=== PATIENT | male | born 1940 | race American Indian/Alaskan Native ===

== ENCOUNTER 2020-05-08 11:33 | Emergency (ER) | payer BC, MEDICARE ==
--- NOTE | 2020-05-08 12:00 | EDM.PDOC ---
ED HPI GENERAL MEDICAL PROBLEM - General Chief Complaint: Genitourinary Problem Stated Complaint: CATHETER ISSUES Time Seen by Provider: 05/08/20 11:37 Source of Information: Reports: Patient, RN Notes Reviewed History Limitations: Reports: No Limitations - History of Present Illness INITIAL COMMENTS - FREE TEXT/NARRATIVE: Patient is an 79 year old male presenting to the ER with c/o ramirez catheter complications. He had surgery on his prostate 2 days ago and is to have his ramirez catheter in place for 10 days. This morning, the catheter stopped draining. Pt c/o bladder fullness and leaking from his urethra. Lower Abdomen Pain Score (Numeric/FACES): 6 - Related Data Allergies Allergy/AdvReac Type Severity Reaction Status Date / Time No Known Allergies Allergy Verified 05/08/20 11:45 Past Medical History - Infectious Disease History Infectious Disease History: Reports: None - Past Surgical History Male Surgical History: Reports: Other (See Below) Other Male Surgeries/Procedures: surgery on left testicle Social & Family History - Tobacco Use Tobacco Use Status *Q: Never Tobacco User Second Hand Smoke Exposure: No - Caffeine Use Caffeine Use: Reports: Coffee - Recreational Drug Use Recreational Drug Use: No ED ROS GENERAL - Review of Systems Review Of Systems: Comprehensive ROS is negative, except as noted in HPI. ED EXAM, RENAL/ - Physical Exam Exam: See Below General Appearance: Alert, WD/WN, No Apparent Distress Respiratory/Chest: No Respiratory Distress, Lungs Clear, Normal Breath Sounds, No Accessory Muscle Use, Chest Non-Tender Cardiovascular: Normal Peripheral Pulses, Regular Rate, Rhythm, No Edema, No Gallop, No JVD, No Murmur, No Rub GI/Abdominal: Normal Bowel Sounds, Soft, No Organomegaly, No Distention, No Abnormal Bruit, No Mass, Tender (suprapubic tenderness/fullness) (Male) Exam: Other (ramirez catheter) Neurological: Alert, Oriented, CN II-XII Intact, Normal Cognition, Normal Gait, Normal Reflexes, No Motor/Sensory Deficits Psychiatric: Normal Affect, Normal Mood Skin Exam: Warm, Dry, Intact, Normal Color, No Rash Course - Vital Signs Last Recorded V/S: Last Vital Signs Temp 97.1 F 05/08/20 11:42 Pulse 75 05/08/20 11:42 Resp 16 05/08/20 11:42 BP 191/82 H 05/08/20 11:42 Pulse Ox 95 05/08/20 11:42 - Re-Assessments/Exams Free Text/Narrative Re-Assessment/Exam: Patient is an 79-year-old male presenting to the emergency department with complaints of his Ramirez catheter not draining. He had surgery on his prostate 2 days ago and is to have a Ramirez catheter in for 10 days. He states this morning the Ramirez catheter passed a blood clot and then stopped draining. Ramirez catheter was disconnected from the drainage bag. I pulled back using a catheter tip syringe. A small amount of bloody urine returned and then the catheter started draining well. He has had about 600 mils of blood-tinged urine drained from his bladder. He is feeling much better. Educated patient's daughter on bladder irrigation if needed. We will send her home with an irrigation tray in case it should stop flowing again. Discussed that if she is not comfortable or if this does not resolve the issue, he should return to the emergency department. They are in agreement with this plan. Discharge instructions as documented. Departure - Departure Time of Disposition: 12:16 Disposition: Home, Self-Care 01 Condition: Good Clinical Impression: Complication, blocked Ramirez catheter Qualifiers: Encounter type: initial encounter Qualified Code(s): T83.091A - Other mechanical complication of indwelling urethral catheter, initial encounter - Discharge Information *PRESCRIPTION DRUG MONITORING PROGRAM REVIEWED*: No *COPY OF PRESCRIPTION DRUG MONITORING REPORT IN PATIENT LUIGI: No Instructions: Indwelling Urinary Catheter Care, Adult Referrals: Paul Amin MD [Primary Care Provider] - Forms: ED Department Discharge Additional Instructions: You were seen in the emergency department today for Ramirez catheter not draining. We were unable to unclog the catheter using a syringe. A bladder irrigation kit has been sent home with you. If it should stop raining again, you may attempt removing the obstruction with the syringe provided. You may also irrigated with sterile saline provided. If this fails to solve the problem, he should return to emergency department. If he experiences any other complications or concerning symptoms, please not hesitate to return to the emergency department. Sepsis Event Note (ED) - Evaluation Sepsis Screening Result: No Definite Risk - Focused Exam Vital Signs: Vital Signs Temp Pulse Resp BP Pulse Ox 05/08/20 11:42 97.1 F 75 16 191/82 H 95
== END 2020-05-08 12:30 | disposition home or self-care (01) ==
LOC: JD.ED 11:33
DX: T83.098A Other mechanical complication of other urinary catheter, initial encounter (principal)
CPT/HCPCS: 99283

== ENCOUNTER 2020-05-14 12:44 | Emergency (ER) | payer BC ==
[2020-05-14] MEDS ORDERED: Levofloxacin 250 MG Tab PO ONE (13:13)
--- NOTE | 2020-05-14 13:17 | EDM.PDOC ---
ED HPI GENERAL MEDICAL PROBLEM - General Chief Complaint: Genitourinary Problem Stated Complaint: CATHETER REMOVAL Time Seen by Provider: 05/14/20 12:56 Source of Information: Reports: Patient History Limitations: Reports: No Limitations - History of Present Illness INITIAL COMMENTS - FREE TEXT/NARRATIVE: 79-year-old gentleman presents to the ED primarily for removal of Banks catheter that was placed through the emergency department on May 08. Patient presented the ED and acute urinary retention due to a plugged Banks catheter. History suggests that he underwent transurethral resection of his prostate by Dr. Teixeira-- urologist in [place] on May 06. 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 Patient appreciates a firm hard mass in the posterior lateral aspect of his scrotum since surgery. He was concerned that it may become a problem. He has appreciated that the urine for the last 2 days has been very clear with occasional strands of tissue but no blood clots. He denies any fever chills. Apparently he was on antibiotics for the last 5 days and finished them up. Onset Date: 05/08/20 (Presented to the ED 2 days post TURP for high-grade obstruction due to prostate enlargement development of acute urinary retention.. Apparently no cancer in the prostate.) Duration: Day(s): (Banks catheter has been in place for the last 6 days.) Location: Reports: Other (Banks catheter. Recent left-sided scrotal surgery at the same time as TURP in [place] May 06.) Quality: Reports: Other Severity: Mild Improves with: Reports: Rest Worsens with: Reports: Other Context: Reports: Other (Presents to the ED to have his catheter removed today which is been in for 6 days placed for acute retention that occurred post TURP 2 days prior. He also had left-sided scrotal surgery for a evaluation of left scrotal mass and presumably a traumatic hydrocele resection.). Denies: Activity (Is worse with walking and movement and sometimes sitting down.), Exercise, Lifting, Sick Contact Associated Symptoms: Reports: Other (Patient otherwise feels good.) Treatments [employer]: Reports: Acetaminophen - Related Data Allergies Allergy/AdvReac Type Severity Reaction Status Date / Time No Known Allergies Allergy Verified 05/14/20 12:55 Past Medical History Genitourinary History: Reports: BPH, Other (See Below) (Patient had a transurethral section of his prostate gland by --neurologist in [place] on May 06. He presented to the ED in acute urine retention on Sunday, May 08 and required Banks catheter insertion. He returns today to have it removed. Secondly patient underwent a exploration of the left hemiscrotum at the same surgical procedure due to a left scrotal mass. 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 Patient now has a firm hard mass in the left posterior lateral scrotum.) Endocrine/Metabolic History: Reports: Obesity/BMI 30+ - Infectious Disease History Infectious Disease History: Reports: None - Past Surgical History Male Surgical History: Reports: Other (See Below) Other Male Surgeries/Procedures: surgery on left testicle--left scrotal exploration surgery carried out May 06, 2020. Unclear if there was any sinister pathology. Patient reports that his testicle was not removed. Also underwent TURP at the same sitting. Musculoskeletal Surgical History: Reports: Knee Replacement (And has had bilateral knee replacement.), Shoulder Replacement Social & Family History - Family History Family Medical History: Noncontributory - Tobacco Use Tobacco Use Status *Q: Never Tobacco User Second Hand Smoke Exposure: No - Caffeine Use Caffeine Use: Reports: Coffee - Living Situation & Occupation Living situation: Reports: Occupation: Retired ED ROS GENERAL - Review of Systems Review Of Systems: See Below Constitutional: Denies: Fever, Chills, Malaise, Weakness, Fatigue, Decreased Appetite, Weight Loss HEENT: Reports: Glasses (As per reading.) Respiratory: Reports: Shortness of Breath. Denies: Wheezing, Pleuritic Chest Pain, Cough, Sputum Cardiovascular: Reports: Blood Pressure Problem, Dyspnea on Exertion. Denies: Chest Pain, Claudication, Edema, Lightheadedness, Orthopnea Endocrine: Reports: No Symptoms GI/Abdominal: Reports: Constipation (Problems with constipation.) : Reports: Other (Apparently suffered trauma to his scrotum and a horse riding accident several years ago. Had a left scrotal mass that was explored by --urologist at the time of TURP done May 06. Apparently nothing sinister was found. It is unclear if he had a traumatic hydrocele etc.) Musculoskeletal: Reports: Back Pain, Joint Pain (Has arthritis both shoulders neck low back and has had both knees replaced.) Skin: Reports: No Symptoms Neurological: Reports: No Symptoms Psychiatric: Reports: No Symptoms Hematologic/Lymphatic: Reports: No Symptoms Immunologic: Reports: No Symptoms ED EXAM, RENAL/ - Physical Exam Exam: See Below Exam Limited By: No Limitations General Appearance: Alert, WD/WN, No Apparent Distress, Other (Temperature is 36.2 with a heart rate of 77 and sinus respiratory to 16 with O2 sats of 95 to 96% room air. Blood pressure initially was elevated 208/8790 systolic hypertension. It came down to 182/84. 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 Urine is clear and jayy with occasional shreds of tissue noted. On examination he has a surgical incision left anterior lateral scrotum. He does have a scrotal hematoma approximately 5 to 6 cm in diameter posterior lateral left scrotum. This appears to be postop hematoma. The right testicle was easily palpable the left was hard to discern. No pain on palpation of the prostatic mass. There is bruising of the posterior lateral left hemiscrotum.). No: Circumcised Back Exam: Decreased Range of Motion Extremities: Normal Inspection, No Pedal Edema, Other (She has had right total shoulder replacement has bilateral knee replacements. Has diminished movement of head neck and low back.) Neurological: Alert, Oriented, CN II-XII Intact, Normal Cognition Psychiatric: Normal Affect, Normal Mood Skin Exam: Warm, Dry, Intact, Ecchymosis (Ecchymoses posterior lateral left hem iscrotum--post operative.) Course - Vital Signs Last Recorded V/S: Last Vital Signs Temp 36.2 C 05/14/20 12:52 Pulse 77 05/14/20 12:52 Resp 16 05/14/20 12:52 BP 208/87 H 05/14/20 12:52 Pulse Ox 95 05/14/20 12:52 - Orders/Labs/Meds Orders: Active Orders 24 hr Category Date Time Status DC Banks Catheter [Urinary Catheter Removal] [] Care 05/14/20 13:12 Active ONETIME Meds: Medications Discontinued Medications Generic Name Dose Route Start Last Admin Trade Name Jose G PRN Reason Stop Dose Admin Levofloxacin 500 mg 05/14/20 13:13 05/14/20 13:17 Levaquin PO 05/14/20 13:14 500 mg ONETIME ONE Administration - Radiology Interpretation Free Text/Narrative:: 79-year-old male presents to the ED for evaluation of Banks catheter that was placed to the emergency department on May 08. Patient had undergone a transurethral urethral resection of his prostate by --neurologist in [place] on May 06. Banks catheter was placed at that time but became occluded and required removal of that catheter and replacement of the new 1 on Sunday, May 08. Urine initially was bloody but he states it has been crystal-clear the last 2 days. He was on prophylactic antibiotics but finished them up yesterday. Patient also underwent a exploration of his left hemiscrotum at the same time as the TURP was carried out. This is because of a left scrotal mass of undetermined etiology. Apparently the testicle was not removed. Sounds like he had a traumatic hydrocele that required resection. On examination today he has a baseball sized hematoma posterior lateral left hemiscrotum which is not bothering him. I could not discern the left testicle on palpation. The right testicle is normal. The hematoma is painless at this time. Appropriate amount of bruising of the left hemiscrotum postop. Plan he will have his Banks catheter removed. He will repeat will receive Levaquin 500 mg by mouth now prophylactically. Is advised that he could stop his Avodart if he is voiding normally over the next 48 hours. Advised to return to the ED if not able to void or passes water in his own in the next 8 hours. Departure - Departure Time of Disposition: 13:14 Disposition: Home, Self-Care 01 Condition: Fair Clinical Impression: Hematoma of scrotum, Encounter for Banks catheter removal - Discharge Information *PRESCRIPTION DRUG MONITORING PROGRAM REVIEWED*: Not Applicable *COPY OF PRESCRIPTION DRUG MONITORING REPORT IN PATIENT LUIGI: Not Applicable Referrals: PCP,Not In Area [Primary Care Provider] - Forms: ED Department Discharge Additional Instructions: Evaluation in the emergency room today in regards to need for removal of Banks catheter that was placed 6 days ago through the emergency department after having transurethral urethral resection of your prostate gland by Dr. Teixeira(urologist) in [place] last May 06. Urine is very clear at this time with occasional flecks of tissue at site of healing. The inside of your prostate gland will take a full 3 weeks to heal completely. Banks catheter was removed in the ED. Continue to drink plenty of fluids. If you are unable to pass her water at all in the next 8 hours you will need to return to the ED for placement of a catheter. Examination of the scrotum reveals a large hematoma almost the size of a baseball on the right side and posterior aspect of the scrotum. This swelling will resolve but will take at least 3 weeks to slowly start to go down and perhaps up to 6 weeks before it is completely back to normal. The wound itself looks like it is healing very well. You were given an antibiotic Levaquin 500 mg in the emergency department at the time of liane ter removal. This is to prevent any infection from occurring. No further antibiotic use is required. You also may discontinue your Avodart medication if you are able to pass her water on your own over the next 48 hours. I.e. it could be stopped on Sunday next week. Use it tomorrow and Sunday. Sepsis Event Note (ED) - Evaluation Sepsis Screening Result: No Definite Risk - Focused Exam Vital Signs: Vital Signs Temp Pulse Resp BP Pulse Ox 05/14/20 12:52 36.2 C 77 16 208/87 H 95 - My Orders Last 24 Hours: My Active Orders 05/14/20 13:12 DC Banks Catheter [Urinary Catheter Removal] [RC] ONETIME - Assessment/Plan Last 24 Hours: My Active Orders 05/14/20 13:12 DC Banks Catheter [Urinary Catheter Removal] [RC] ONETIME
== END 2020-05-14 13:29 | disposition home or self-care (01) ==
LOC: JD.ED 12:44
DX: N99.840 Postprocedural hematoma of a genitourinary system organ or structure following a genitourinary system procedure (principal); N40.1 Benign prostatic hyperplasia with lower urinary tract symptoms; R33.8 Other retention of urine; E66.9 Obesity, unspecified; Z68.38 Body mass index [BMI] 38.0-38.9, adult; Z46.6 Encounter for fitting and adjustment of urinary device
CPT/HCPCS: 99283; A9270